=== PATIENT | female | born 1975 | race Two or more races ===

== ENCOUNTER 2020-12-01 08:45 | Inpatient (IN) | payer OTHER ==
[~2020-12-01] VITALS: Ht 165.1 cm; Wt 113.4 kg
[2020-12-01] MEDS ORDERED: COZAAR100 MG PO (09:45)
== END 2020-12-11 09:12 | disposition home or self-care (01) | DRG 743 ==
LOC: ADM 08:45 → EDSTATUS 08:45 → OB/GYN 12-08 08:00 → O/R 12-08 12:58 → OB/GYN 12-08 12:58
PROVIDERS: ADMIT Obstetrics & Gynecology; ATTEND Obstetrics & Gynecology
PROC: 0UB70ZZ Excision of Bilateral Fallopian Tubes, Open Approach (ICD-10-PCS; 2020-12-08)
PROC: 0UT90ZZ Resection of Uterus, Open Approach (ICD-10-PCS; principal; 2020-12-08 08:00)
DX: D25.1 Intramural leiomyoma of uterus (principal); D25.2 Subserosal leiomyoma of uterus; N93.9 Abnormal uterine and vaginal bleeding, unspecified; N83.8 Other noninflammatory disorders of ovary, fallopian tube and broad ligament; I10 Essential (primary) hypertension